=== PATIENT | male | born 1950 | race Caucasian/White ===

== ENCOUNTER 2016-09-16 08:24 | Outpatient (CLI) | payer OTHER ==
[2016-09-16 16:22] LABS: #Basophils 0.1 thou/uL (0.0-0.2); #Eosinphils 0.3 thou/uL (0.0-0.7); #Lymphocytes 1.5 thou/uL (1.20-3.40); #Monocytes 0.5 thou/uL (0.11-0.59); #Neutrophils 4.2 thou/uL (1.40-6.50); %Basophils 2.2 % (0.0-1.0); %Eosinophils 4.4 % (0.0-10.0); %Monocytes 7.8 % (0.0-10.0); Hematocrit 48.6 % (42.0-52.0); Mean Platelet Volume 6.3 fL (7.4-10.4); Red Blood Cell (RBC) Count 5.29 mill/uL (4.70-6.10); White Blood Cell (WBC) Count 6.7 thou/uL (4.8-10.8)
[2016-09-16 16:32] LABS: ALT (SGPT) 29 U/L (0-55); AST (SGOT) 31 U/L (5-34); Alkaline Phosphatase 79 U/L (40-150); Anion Gap 18 mmol/L (10-20); BUN (Urea Nitrogen) 16 mg/dL (8.4-25.7); Bilirubin, Total 0.8 mg/dL (0.2-1.2); Calc. Creatinine Clearance 0 mL/min (70-130); Calcium 8.9 mg/dL (7.8-10.44); Carbon Dioxide 24 mmol/L (23-31); Chloride 106 mmol/L (98-107); Estimated GFR-MDRD 81; Globulin 2.7 g/dL (2.4-3.5); LDL Cholesterol, Calculated 98 mg/dL
== END 2016-09-16 08:25 ==
LOC: LABLEX 08:24
PROVIDERS: ATTEND Family Medicine
DX: Z12.5 Encounter for screening for malignant neoplasm of prostate (principal); E78.5 Hyperlipidemia, unspecified; I10 Essential (primary) hypertension; R22.2 Localized swelling, mass and lump, trunk
CPT/HCPCS: 80053; 80061; 84443; 85025; G0103

== ENCOUNTER 2021-06-10 05:23 | Emergency (ER) | payer MEDICARE ==
[2021-06-10] MEDS ORDERED: Oxymetazoline HCl 0.05% (30 ML BOT) ONE (05:31)
== END 2021-06-10 06:10 | disposition home or self-care (01) ==
LOC: BURERS 05:23
DX: R04.0 Epistaxis (principal); I10 Essential (primary) hypertension; E78.5 Hyperlipidemia, unspecified; Z79.899 Other long term (current) drug therapy
CPT/HCPCS: 30905